=== PATIENT | female | born 1975 | race Caucasian/White ===

== ENCOUNTER → 2021-08-18 | Day surgery (SDC) | payer OTHER ==
[~2021-08-18] VITALS: Ht 167.6 cm; Wt 100.0 kg
[~2021-08-18] MED LIST: HYDROmorphone 2 MG/ML INJ. IVP PRN; IV RINGERS,LACTATED 1000ML 1,000 ML IV SCH; LEVO175T5 PO; LIDOCAINE 2% PF 5 ML VIAL. ONE; MORPHINE SULFATE 2 MG/ML INJ. IVP PRN; PROCHLORPERAZINE 10 MG/2 ML VIAL. IVP PRN; PROPOFOL 10 MG/ML (20ML) VIAL. IV ONE; SERT-268 PO; fentaNYL PF VIAL 100 MCG/2 ML VIAL IVP PRN
[2021-08-18 06:11] VITALS: BP 125/74
[2021-08-18 07:45] VITALS: BP 115/70
--- NOTE | 2021-08-18 13:04 | CONS ---
DATE OF CONSULTATION: 08/18/2021 REFERRING PHYSICIAN: Radha Covington MD HISTORY OF PRESENT ILLNESS: A 46-year-old female with past medical history significant for hypothyroidism, seen for colon screening. She had one done in 2018, which was unrevealing. She has had stools, which are consistent and formed, occasionally loose. Family history is positive for colorectal cancer with younger brother and mother with Archer syndrome. Weight and appetite are stable. There has been no bleeding. She is otherwise without additional complaints. PAST MEDICAL HISTORY: Hypothyroidism. ALLERGIES: None. MEDICATIONS: Include levothyroxine 0.175 mg daily. FAMILY HISTORY: Significant for breast cancer in grandmother. Colon cancer in mother and brother. Diabetes with grandfather. GA with grandfather. SOCIAL HISTORY: She is a social drinker, nonsmoker. PAST SURGICAL HISTORY: Significant for hysterectomy and thyroid surgery. REVIEW OF SYSTEMS: Per records. PHYSICAL EXAMINATION: GENERAL: Reveals a well-nourished, well-developed female who is alert, cooperative, in no acute distress. VITAL SIGNS: Her temperature is 97.5, pulse 92. LUNGS: Clear. CARDIOVASCULAR: Reveals an S1, S2, without S3, S4 or appreciable murmur. ABDOMEN: Reveals a soft abdomen, normal bowel sounds, without appreciable hepatosplenomegaly, with hysterectomy incision noted. EXTREMITIES: Reveals no cyanosis, clubbing or edema. IMPRESSION: Family history of Archer syndrome. Surveillance exam is recommended at this time. Risks and benefits of procedure have been previously discussed including risk of hemorrhage and perforation and is willing to proceed. I thank Dr. Radha Covington for allowing us to consult and participate in the patient's care. LOTUS DR: Svetlana TID: [id number]
== END | disposition home or self-care (01) ==
LOC: ENDOS 05:47
PROVIDERS: ATTEND Internal Medicine Gastroenterology
DX: Z12.11 Encounter for screening for malignant neoplasm of colon (principal); K64.0 First degree hemorrhoids; K63.89 Other specified diseases of intestine; E03.9 Hypothyroidism, unspecified; K21.9 Gastro-esophageal reflux disease without esophagitis; F41.9 Anxiety disorder, unspecified; Z80.0 Family history of malignant neoplasm of digestive organs; Z90.710 Acquired absence of both cervix and uterus; Z98.890 Other specified postprocedural states; Z79.899 Other long term (current) drug therapy
CPT/HCPCS: 45378; J2704